=== PATIENT | female | born 1980 | race Caucasian/White ===

== ENCOUNTER 2018-06-17 23:47 | Emergency (ER) | payer MEDICAID ==
[~2018-06-17] VITALS: Ht 157.5 cm; Wt 118.2 kg
[~2018-06-17 23:47] MED LIST: ALBU18HF2 INH; BECL8.7A7 INH; CLON-527 PO; COU1T PO; COU3T PO; GABA-530 PO; LACT1CAP73 PO; SERT50TA PO; SUMA100T16 PO
[2018-06-18] MEDS ORDERED: morphine 4 MG/ML inj SYRINge IV ONE ×2 (00:20→02:20)
[2018-06-18] MEDS ORDERED: normal saline 1000ml 1,000 ML IV ONE (00:20)
[2018-06-18] MEDS ORDERED: LIDOcaine Viscous 15ml cup MM PRN (00:20)
[2018-06-18] MEDS ORDERED: mag hydrox/Alum hydrox/simeth 30ml oral suspension PO ONE (00:20)
[2018-06-18] MEDS ORDERED: ondansetron/PF 4mg/2ml inj IV ONE ×2 (00:20→02:20)
[2018-06-18 01:33] LABS: ALANINE AMINOTRANSFERASE 19 U/L (12-78); ALBUMIN 3.3 G/DL (3.4-5.0); ALBUMIN/GLOBULIN RATIO 0.8 (1.1-1.5); ALKALINE PHOSPHATASE 115 IU/L (46-116); ANION GAP 10 (8-16); ASPARTATE AMINO TRANSFERASE 25 U/L (10-37); BILIRUBIN,TOTAL 0.3 MG/DL (0.1-1.0); BLOOD UREA NITROGEN 15 MG/DL (7-18); BUN/CREATININE RATIO 18.8 (6.6-38.0); CALCIUM 8.7 MG/DL (8.5-10.1); CHLORIDE 103 MMOL/L (99-107); GLUCOSE 95 MG/DL (70-104); POTASSIUM 4.1 MMOL/L (3.5-5.1); SODIUM 138 MMOL/L (135-145); TOTAL CARBON DIOXIDE 24.9 MMOL/L (24-32); TOTAL PROTEIN 7.5 G/DL (6.4-8.2); eGFR 80 ML/MIN
[2018-06-18 01:37] LABS: INR 1.1 INR; PROTHROMBIN TIME 10.8 SECONDS (9.0-12.0)
[2018-06-18 01:40] LABS: COLOR,URINE YELLOW (Yellow); GLUCOSE, URINE NEGATIVE (Neg); KETONES,URINE NEGATIVE (Neg); LEUKOCYTE ESTERASE ,URINE SMALL (Neg); NITRITES, URINE NEGATIVE (Neg); OCCULT BLOOD,URINE MODERATE (Neg); PH,URINE 5.5 (4.8-8.0); PROTEIN,URINE NEGATIVE (Neg); UROBILINOGEN,URINE 0.2 E.U/dL (0.2-1.0)
[2018-06-18 01:41] LABS: URINE HCG NEGATIVE (NEG)
[2018-06-18 01:44] LABS: BASOPHILS # (AUTO) 0.1 X10'3 (0-0.2); BASOPHILS % (AUTO) 1.7 % (0-1); EOSINOPHILS # (AUTO) 0.3 X10'3 (0-0.9); EOSINOPHILS % (AUTO) 4.3 % (0-6); HEMATOCRIT 29.6 % (35.0-45.0); HEMOGLOBIN 9.8 g/dl (12.0-16.0); LYMPHOCYTES # (AUTO) 2.1 X10'3 (1.1-4.8); LYMPHOCYTES % (AUTO) 30.4 % (21-51); MEAN CORPUSCULAR HEMOGLOBIN 29.6 PG (27.0-31.0); MEAN CORPUSCULAR HGB CONC 33.3 % (33.0-36.5); MEAN PLATELET VOLUME 8.4 FL (7.4-10.4); MONOCYTES # (AUTO) 0.6 X10'3 (0-0.9); NEUTROPHILS # (AUTO) 3.8 X10'3 (1.8-7.7); NEUTROPHILS % (AUTO) 54.6 % (42-75); PLATELET COUNT 171 X10'3 (140-440); RED BLOOD COUNT 3.32 X10'6 (4.20-5.60); RED CELL DISTRIBUTION WIDTH 14.3 % (11.5-14.5); WHITE BLOOD COUNT 6.9 X10'3 (4.5-11.0)
[2018-06-18 01:45] LABS: CLARITY,URINE SLIGHTLY CLOUDY (Clear); UA COLLECTION TYPE CLN CATCH MIDSTREAM
[2018-06-18 01:47] LABS: BACTERIA,URINE FEW /HPF (Neg); SQUAMOUS EPITHELIAL CELL,UR FEW /LPF (FEW); WBC CLUMPS,URINE FEW /HPF (NEGATIVE)
[2018-06-18] MEDS ORDERED: ciprofloxacin 250mg tablet PO ONE (02:20)
[2018-06-18] MEDS ORDERED: ONDA4TAB9 PO (03:14)
[2018-06-18] MEDS ORDERED: CIPR-259 PO (03:14)
[2018-06-18 03:22] VITALS: BP 125/73
== END 2018-06-18 03:34 | disposition home or self-care (01) ==
LOC: ER 23:48
DX: N39.0 Urinary tract infection, site not specified (principal); R19.7 Diarrhea, unspecified; R11.10 Vomiting, unspecified; E66.01 Morbid (severe) obesity due to excess calories; J45.909 Unspecified asthma, uncomplicated; E11.9 Type 2 diabetes mellitus without complications; M19.90 Unspecified osteoarthritis, unspecified site; K21.9 Gastro-esophageal reflux disease without esophagitis; G89.29 Other chronic pain; Z86.73 Personal history of transient ischemic attack (TIA), and cerebral infarction without residual deficits; Z56.0 Unemployment, unspecified; Z90.49 Acquired absence of other specified parts of digestive tract; Z98.51 Tubal ligation status; Z86.718 Personal history of other venous thrombosis and embolism; Z86.711 Personal history of pulmonary embolism; Z87.442 Personal history of urinary calculi; Z88.3 Allergy status to other anti-infective agents; Z88.0 Allergy status to penicillin; Z88.2 Allergy status to sulfonamides; Z91.040 Latex allergy status; Z79.01 Long term (current) use of anticoagulants; Z88.6 Allergy status to analgesic agent
CPT/HCPCS: 36415; 80053; 81001; 81025; 85025; 85610; 87088; 96361; 96374; 96375; 96376; 99284; J2270; J2405; J7030

== ENCOUNTER 2018-07-23 22:23 | Emergency (ER) | payer MEDICAID ==
[~2018-07-23] VITALS: Ht 157.5 cm; Wt 127.0 kg
[2018-07-23] MEDS ORDERED: mag hydrox/Alum hydrox/simeth 30ml oral suspension PO ONE (22:40)
[2018-07-23] MEDS ORDERED: famotidine 20mg tablet PO ONE (22:40)
[2018-07-23] MEDS ORDERED: proCHLORperazine 10mg tablet PO ONE (22:40)
[2018-07-23] MEDS ORDERED: LIDOcaine Viscous 15ml cup MM PRN (22:40)
[2018-07-23] MEDS ORDERED: ketorolac trometh inj. 60 MG/2 ML VIAL IM ONE (23:50)
[2018-07-24 00:26] LABS: CLARITY,URINE SLIGHTLY CLOUDY (Clear); COLOR,URINE YELLOW (Yellow); GLUCOSE, URINE NEGATIVE (Neg); KETONES,URINE NEGATIVE (Neg); LEUKOCYTE ESTERASE ,URINE MODERATE (Neg); NITRITES, URINE NEGATIVE (Neg); OCCULT BLOOD,URINE LARGE (Neg); PH,URINE 5.5 (4.8-8.0); PROTEIN,URINE NEGATIVE (Neg); UROBILINOGEN,URINE 0.2 E.U/dL (0.2-1.0)
[2018-07-24 00:27] LABS: UA COLLECTION TYPE CLN CATCH MIDSTREAM
[2018-07-24 00:40] LABS: BACTERIA,URINE 35 /HPF (Neg); MUCUS STRANDS MODERATE /LPF (Neg); SQUAMOUS EPITHELIAL CELL,UR FEW /LPF (FEW)
[2018-07-24] MEDS ORDERED: ONDA4TAB6 PO (00:43)
[2018-07-24] MEDS ORDERED: NITR100C6 PO (00:43)
[2018-07-24] MEDS ORDERED: nitrofuran/nitrofuran macrocrysal 100 MG capsule PO ONE (00:45)
[2018-07-24 01:04] VITALS: BP 144/94
== END 2018-07-24 01:21 | disposition home or self-care (01) ==
LOC: ER 22:24
DX: N39.0 Urinary tract infection, site not specified (principal); R10.12 Left upper quadrant pain; R10.11 Right upper quadrant pain; R10.13 Epigastric pain; G43.909 Migraine, unspecified, not intractable, without status migrainosus; J45.909 Unspecified asthma, uncomplicated; E11.9 Type 2 diabetes mellitus without complications; G89.29 Other chronic pain; M19.90 Unspecified osteoarthritis, unspecified site; Z88.0 Allergy status to penicillin; Z88.1 Allergy status to other antibiotic agents; Z88.2 Allergy status to sulfonamides; Z88.8 Allergy status to other drugs, medicaments and biological substances; Z88.6 Allergy status to analgesic agent; Z91.018 Allergy to other foods; Z79.899 Other long term (current) drug therapy; Z86.73 Personal history of transient ischemic attack (TIA), and cerebral infarction without residual deficits; Z87.442 Personal history of urinary calculi; Z86.718 Personal history of other venous thrombosis and embolism; Z90.49 Acquired absence of other specified parts of digestive tract; Z98.51 Tubal ligation status; Z56.0 Unemployment, unspecified
CPT/HCPCS: 74018; 81001; 87088; 96372; 99284; J1885; 81003; Q0164

== ENCOUNTER 2018-09-04 23:11 | Emergency (ER) | payer MEDICAID ==
[~2018-09-04] VITALS: Ht 157.5 cm; Wt 123.0 kg
[~2018-09-04 23:11] MED LIST changes: +NITR100C6 PO; +ONDA4TAB6 PO
[2018-09-04 23:14] VITALS: BP 112/66
[2018-09-05] MEDS ORDERED: AZIT250T83 PO (00:35)
[2018-09-05] MEDS ORDERED: BUDE10.22 INH (00:35)
[2018-09-05] MEDS ORDERED: ALBU18HF2 INH (00:35)
[2018-09-05] MEDS ORDERED: ketorolac trometh inj. 60 MG/2 ML VIAL IM ONE (00:45)
== END 2018-09-05 00:59 | disposition home or self-care (01) ==
LOC: ER 23:11
DX: J44.1 Chronic obstructive pulmonary disease with (acute) exacerbation (principal); G43.909 Migraine, unspecified, not intractable, without status migrainosus; Z86.718 Personal history of other venous thrombosis and embolism; E11.9 Type 2 diabetes mellitus without complications; G89.29 Other chronic pain; Z86.73 Personal history of transient ischemic attack (TIA), and cerebral infarction without residual deficits; M19.90 Unspecified osteoarthritis, unspecified site; Z90.49 Acquired absence of other specified parts of digestive tract; Z98.51 Tubal ligation status; Z88.0 Allergy status to penicillin; Z88.2 Allergy status to sulfonamides; Z88.1 Allergy status to other antibiotic agents; Z91.040 Latex allergy status; Z88.6 Allergy status to analgesic agent; Z91.018 Allergy to other foods; Z88.8 Allergy status to other drugs, medicaments and biological substances; Z79.01 Long term (current) use of anticoagulants; Z79.899 Other long term (current) drug therapy; Z56.0 Unemployment, unspecified
CPT/HCPCS: 96372; 99283; J1885

== ENCOUNTER 2018-09-08 01:14 | Emergency (ER) | payer MEDICAID ==
[~2018-09-08] VITALS: Ht 157.5 cm; Wt 110.0 kg
[~2018-09-08 01:14] MED LIST changes: +AZIT250T83 PO; +BUDE10.22 INH
[2018-09-08] MEDS ORDERED: normal saline 1000ML IV soln IVB ONE (01:30)
[2018-09-08] MEDS ORDERED: ketorolac trometh. 30mg/ml inj. IV ONE (01:30)
[2018-09-08] MEDS ORDERED: ondansetron/PF 4mg/2ml inj IV ONE (01:30)
[2018-09-08] MEDS ORDERED: LORazepam 2 mg/ml vial IV ONE (01:30)
[2018-09-08] MEDS ORDERED: diphenhydrAMINE 50 mg/ml inj IM STA (02:20)
--- NOTE | 2018-09-08 02:20 | NUR ---
pt developing rash by injection site and to elbow red and itchy MD made aware ordered benadryl
[2018-09-08 02:21] LABS: BASOPHILS # (AUTO) 0.1 X10'3 (0-0.2); BASOPHILS % (AUTO) 1.3 % (0-1); EOSINOPHILS # (AUTO) 0.3 X10'3 (0-0.9); EOSINOPHILS % (AUTO) 3.9 % (0-6); HEMATOCRIT 34.6 % (35.0-45.0); HEMOGLOBIN 11.5 g/dl (12.0-16.0); LYMPHOCYTES # (AUTO) 2.1 X10'3 (1.1-4.8); LYMPHOCYTES % (AUTO) 26.7 % (21-51); MEAN CORPUSCULAR HEMOGLOBIN 28.6 PG (27.0-31.0); MEAN CORPUSCULAR HGB CONC 33.2 % (33.0-36.5); MEAN CORPUSCULAR VOLUME 86.1 FL (78-98); MEAN PLATELET VOLUME 8.3 FL (7.4-10.4); MONOCYTES # (AUTO) 0.5 X10'3 (0-0.9); MONOCYTES % (AUTO) 6.2 % (2-12); NEUTROPHILS % (AUTO) 61.9 % (42-75); PLATELET COUNT 229 X10'3 (140-440); RED BLOOD COUNT 4.02 X10'6 (4.20-5.60); RED CELL DISTRIBUTION WIDTH 15.2 % (11.5-14.5)
[2018-09-08] MEDS ORDERED: diphenhydrAMINE 50 mg/ml inj ONE (02:22)
[2018-09-08] MEDS ORDERED: diphenhydrAMINE 50 mg/ml inj IV STA (02:24)
[2018-09-08 02:29] LABS: ALANINE AMINOTRANSFERASE 33 U/L (12-78); ALBUMIN 3.2 G/DL (3.4-5.0); ALBUMIN/GLOBULIN RATIO 0.8 (1.1-1.5); ALKALINE PHOSPHATASE 128 IU/L (46-116); ANION GAP 10 (8-16); ASPARTATE AMINO TRANSFERASE 30 U/L (10-37); BILIRUBIN,TOTAL 0.2 MG/DL (0.1-1.0); BLOOD UREA NITROGEN 24 MG/DL (7-18); BUN/CREATININE RATIO 35.8 (6.6-38.0); CALCIUM 8.6 MG/DL (8.5-10.1); CHLORIDE 106 MMOL/L (99-107); CREATININE 0.67 MG/DL (0.40-0.90); GLUCOSE 107 MG/DL (70-104); POTASSIUM 4.7 MMOL/L (3.5-5.1); SODIUM 141 MMOL/L (135-145); TOTAL CARBON DIOXIDE 25.1 MMOL/L (24-32); TOTAL PROTEIN 7.4 G/DL (6.4-8.2); eGFR > 90 ML/MIN
--- NOTE | 2018-09-08 02:31 | NUR ---
took off the tagaderm, coban, in case that was causing any reaction with her skin.
--- NOTE | 2018-09-08 02:32 | NUR ---
pt asking for more pain medicine
[2018-09-08] MEDS ORDERED: morphine 4 MG/ML inj SYRINge IV ONE (02:40)
[2018-09-08 03:00] LABS: CLARITY,URINE CLOUDY (Clear); COLOR,URINE YELLOW (Yellow); GLUCOSE, URINE NEGATIVE (Neg); KETONES,URINE NEGATIVE (Neg); LEUKOCYTE ESTERASE ,URINE NEGATIVE (Neg); NITRITES, URINE NEGATIVE (Neg); OCCULT BLOOD,URINE LARGE (Neg); PROTEIN,URINE NEGATIVE (Neg); UROBILINOGEN,URINE 0.2 E.U/dL (0.2-1.0)
[2018-09-08 03:03] LABS: UA COLLECTION TYPE CLN CATCH MIDSTREAM
[2018-09-08 03:04] LABS: URINE HCG NEGATIVE (NEG)
[2018-09-08 03:25] LABS: SQUAMOUS EPITHELIAL CELL,UR MANY /LPF (FEW)
[2018-09-08 03:26] LABS: BACTERIA,URINE 4+ /HPF (Neg)
[2018-09-08] MEDS ORDERED: ONDA4TAB12 PO (04:52)
[2018-09-08 05:29] VITALS: BP 120/85
== END 2018-09-08 05:32 | disposition home or self-care (01) ==
LOC: ER 01:14
DX: R10.32 Left lower quadrant pain (principal); G43.909 Migraine, unspecified, not intractable, without status migrainosus; J45.909 Unspecified asthma, uncomplicated; Z86.718 Personal history of other venous thrombosis and embolism; E11.9 Type 2 diabetes mellitus without complications; M19.90 Unspecified osteoarthritis, unspecified site; G89.29 Other chronic pain; Z86.73 Personal history of transient ischemic attack (TIA), and cerebral infarction without residual deficits; F17.210 Nicotine dependence, cigarettes, uncomplicated; Z90.49 Acquired absence of other specified parts of digestive tract; Z98.51 Tubal ligation status; Z88.0 Allergy status to penicillin; Z88.1 Allergy status to other antibiotic agents; Z88.2 Allergy status to sulfonamides; Z91.018 Allergy to other foods; Z91.040 Latex allergy status; Z88.8 Allergy status to other drugs, medicaments and biological substances; Z79.01 Long term (current) use of anticoagulants; Z79.899 Other long term (current) drug therapy; Z56.0 Unemployment, unspecified
CPT/HCPCS: 36415; 74176; 80053; 81001; 81025; 85025; 96374; 96375; 99284; J1200; J1885; J2060; J2270; J2405; J7030

== ENCOUNTER 2018-09-13 15:16 | Emergency (ER) | payer MEDICAID ==
[~2018-09-13] VITALS: Ht 157.5 cm; Wt 118.2 kg
[~2018-09-13 15:16] MED LIST changes: -AZIT250T83 PO; +ONDA4TAB12 PO
[2018-09-13] MEDS ORDERED: HYDROcodone/acetaminophen 5mg/325mg tablet PO ONE (15:45)
[2018-09-13 16:19] VITALS: BP 107/73
== END 2018-09-13 16:21 | disposition home or self-care (01) ==
LOC: ER 15:17
DX: S80.212A Abrasion, left knee, initial encounter (principal); G43.909 Migraine, unspecified, not intractable, without status migrainosus; J45.909 Unspecified asthma, uncomplicated; E11.9 Type 2 diabetes mellitus without complications; Z86.718 Personal history of other venous thrombosis and embolism; M19.90 Unspecified osteoarthritis, unspecified site; G89.29 Other chronic pain; Z86.73 Personal history of transient ischemic attack (TIA), and cerebral infarction without residual deficits; Z88.0 Allergy status to penicillin; Z88.1 Allergy status to other antibiotic agents; Z91.040 Latex allergy status; Z91.018 Allergy to other foods; Z88.8 Allergy status to other drugs, medicaments and biological substances; Z79.01 Long term (current) use of anticoagulants; Z79.899 Other long term (current) drug therapy; Z90.49 Acquired absence of other specified parts of digestive tract; Z98.51 Tubal ligation status; Z56.0 Unemployment, unspecified; X58.XXXA Exposure to other specified factors, initial encounter; Y93.89 Activity, other specified; Y92.89 Other specified places as the place of occurrence of the external cause; Y99.8 Other external cause status
CPT/HCPCS: 73560; 99284

== ENCOUNTER 2018-09-18 18:03 | Emergency (ER) | payer MEDICAID ==
[~2018-09-18] VITALS: Ht 157.5 cm; Wt 124.0 kg
[2018-09-18 18:25] VITALS: BP 134/89
[2018-09-18] MEDS ORDERED: proCHLORperazine 10 MG/2 ml inj IM ONE (20:40)
[2018-09-18] MEDS ORDERED: ketorolac trometh inj. 60 MG/2 ML VIAL IM ONE (20:40)
[2018-09-18] MEDS ORDERED: PHE12.5T PO (21:18)
== END 2018-09-18 21:25 | disposition home or self-care (01) ==
LOC: ER 18:03
DX: G43.909 Migraine, unspecified, not intractable, without status migrainosus (principal); J45.909 Unspecified asthma, uncomplicated; E11.9 Type 2 diabetes mellitus without complications; M19.90 Unspecified osteoarthritis, unspecified site; G89.29 Other chronic pain; M54.9 Dorsalgia, unspecified; Z98.51 Tubal ligation status; Z86.73 Personal history of transient ischemic attack (TIA), and cerebral infarction without residual deficits; Z90.49 Acquired absence of other specified parts of digestive tract; Z56.0 Unemployment, unspecified; Z91.040 Latex allergy status; Z88.0 Allergy status to penicillin; Z88.2 Allergy status to sulfonamides; Z88.8 Allergy status to other drugs, medicaments and biological substances; Z91.018 Allergy to other foods
CPT/HCPCS: 96372; 99283; J0780; J1885

== ENCOUNTER → 2018-09-21 | Emergency (ER) | payer MEDICAID ==
[~2018-09-21] VITALS: Ht 157.5 cm; Wt 109.0 kg
[~2018-09-21] MED LIST changes: +PHE12.5T PO; +ibuprofen tablet 400 MG TABLET PO ONE
[2018-09-21 00:12] VITALS: BP 134/86
--- NOTE | 2018-09-21 00:22 | NUR ---
Patient's original complaint involved her foot. When x-ray when in to take the image, she states that it is actually her ankle. Order changed from foot to ankle.
== END | disposition home or self-care (01) ==
LOC: ER 00:09
DX: S93.401A Sprain of unspecified ligament of right ankle, initial encounter (principal); G43.909 Migraine, unspecified, not intractable, without status migrainosus; E11.9 Type 2 diabetes mellitus without complications; M19.90 Unspecified osteoarthritis, unspecified site; G89.29 Other chronic pain; Z86.718 Personal history of other venous thrombosis and embolism; Z86.73 Personal history of transient ischemic attack (TIA), and cerebral infarction without residual deficits; Z98.51 Tubal ligation status; Z90.49 Acquired absence of other specified parts of digestive tract; Z56.0 Unemployment, unspecified; Z88.1 Allergy status to other antibiotic agents; Z91.040 Latex allergy status; Z88.0 Allergy status to penicillin; Z88.2 Allergy status to sulfonamides; Z88.8 Allergy status to other drugs, medicaments and biological substances; Z91.018 Allergy to other foods; W01.0XXA Fall on same level from slipping, tripping and stumbling without subsequent striking against object, initial encounter; Y93.89 Activity, other specified; Y92.89 Other specified places as the place of occurrence of the external cause; Y99.8 Other external cause status
CPT/HCPCS: 73610; 99283

== ENCOUNTER 2018-10-01 23:10 | Emergency (ER) | payer MEDICAID ==
[~2018-10-01] VITALS: Ht 157.5 cm; Wt 129.6 kg
[~2018-10-01 23:10] MED LIST changes: -ibuprofen tablet 400 MG TABLET PO ONE
[2018-10-01 23:13] VITALS: BP 132/48
--- NOTE | 2018-10-02 00:03 | NUR ---
PT RESTING COMFORTABLY IN BED, UNTIL SHE SAW STAFF WALKING BY AT WHICH POINT SHE STARTED MOANING FOR PAIN MEDS
[2018-10-02] MEDS ORDERED: cyclobenzaprine 10mg tablet PO ONE (00:45)
[2018-10-02] MEDS ORDERED: HYDROcodone/acetaminophen 10/325mg tab PO ONE (00:45)
[2018-10-02] MEDS ORDERED: ketorolac trometh inj. 60 MG/2 ML VIAL IM ONE (00:45)
[2018-10-02] MEDS ORDERED: CYCL-1 PO (01:37)
== END 2018-10-02 01:53 | disposition home or self-care (01) ==
LOC: ER 23:11
DX: R56.9 Unspecified convulsions (principal); M54.5 Low back pain; R32 Unspecified urinary incontinence; R20.0 Anesthesia of skin; G89.29 Other chronic pain; E11.9 Type 2 diabetes mellitus without complications; M19.90 Unspecified osteoarthritis, unspecified site; G43.909 Migraine, unspecified, not intractable, without status migrainosus; Z88.0 Allergy status to penicillin; Z88.1 Allergy status to other antibiotic agents; Z88.8 Allergy status to other drugs, medicaments and biological substances; Z88.2 Allergy status to sulfonamides; Z91.018 Allergy to other foods; Z91.040 Latex allergy status; Z79.899 Other long term (current) drug therapy; Z86.718 Personal history of other venous thrombosis and embolism; Z86.73 Personal history of transient ischemic attack (TIA), and cerebral infarction without residual deficits; Z87.442 Personal history of urinary calculi; Z56.0 Unemployment, unspecified; Z90.49 Acquired absence of other specified parts of digestive tract; Z98.51 Tubal ligation status
CPT/HCPCS: 72110; 96372; 99283; J1885

== ENCOUNTER 2018-10-21 23:04 | Emergency (ER) | payer MEDICAID ==
[~2018-10-21] VITALS: Ht 157.5 cm; Wt 126.6 kg
[~2018-10-21 23:04] MED LIST changes: +CYCL-1 PO
[2018-10-22] MEDS ORDERED: cyclobenzaprine 10mg tablet PO ONE (01:55)
[2018-10-22] MEDS ORDERED: ibuprofen 200mg tablet PO ONE (01:55)
[2018-10-22 01:59] VITALS: BP 110/70
== END 2018-10-22 | disposition home or self-care (01) ==
LOC: ER 10-22 04:44
DX: R07.89 Other chest pain (principal); G43.909 Migraine, unspecified, not intractable, without status migrainosus; J45.909 Unspecified asthma, uncomplicated; E11.9 Type 2 diabetes mellitus without complications; M19.90 Unspecified osteoarthritis, unspecified site; G89.29 Other chronic pain; Z86.718 Personal history of other venous thrombosis and embolism; Z86.73 Personal history of transient ischemic attack (TIA), and cerebral infarction without residual deficits; Z90.49 Acquired absence of other specified parts of digestive tract; Z90.89 Acquired absence of other organs; Z88.0 Allergy status to penicillin; Z88.1 Allergy status to other antibiotic agents; Z91.018 Allergy to other foods; Z91.040 Latex allergy status; Z88.8 Allergy status to other drugs, medicaments and biological substances; Z79.01 Long term (current) use of anticoagulants; Z79.899 Other long term (current) drug therapy
CPT/HCPCS: 93005; 99283

== ENCOUNTER 2018-10-27 22:37 | Emergency (ER) | payer MEDICAID ==
[~2018-10-27] VITALS: Ht 157.5 cm; Wt 130.0 kg
[2018-10-27 23:01] VITALS: BP 131/82
[2018-10-27] MEDS ORDERED: acetaminophen w/codeine (30MG) #3 tablet PO ONE (23:10)
== END 2018-10-27 23:36 | disposition home or self-care (01) ==
LOC: ER 22:37
DX: S70.02XA Contusion of left hip, initial encounter (principal); S09.90XA Unspecified injury of head, initial encounter; G43.909 Migraine, unspecified, not intractable, without status migrainosus; J45.909 Unspecified asthma, uncomplicated; Z86.718 Personal history of other venous thrombosis and embolism; E11.9 Type 2 diabetes mellitus without complications; M19.90 Unspecified osteoarthritis, unspecified site; G89.29 Other chronic pain; Z86.73 Personal history of transient ischemic attack (TIA), and cerebral infarction without residual deficits; Z90.49 Acquired absence of other specified parts of digestive tract; Z98.51 Tubal ligation status; Z88.1 Allergy status to other antibiotic agents; Z91.040 Latex allergy status; Z88.0 Allergy status to penicillin; Z88.2 Allergy status to sulfonamides; Z88.8 Allergy status to other drugs, medicaments and biological substances; Z91.018 Allergy to other foods; Z79.01 Long term (current) use of anticoagulants; Z79.899 Other long term (current) drug therapy; Z56.0 Unemployment, unspecified; W18.2XXA Fall in (into) shower or empty bathtub, initial encounter; Y93.E1 Activity, personal bathing and showering; Y92.89 Other specified places as the place of occurrence of the external cause; Y99.8 Other external cause status
CPT/HCPCS: 70450; 73502; 99284

== ENCOUNTER 2018-11-01 23:22 | Emergency (ER) | payer MEDICAID ==
[~2018-11-01] VITALS: Ht 157.5 cm; Wt 120.0 kg
[2018-11-02] MEDS ORDERED: normal saline 1000ML IV soln IVB ONE (00:10)
[2018-11-02] MEDS ORDERED: ondansetron/PF 4mg/2ml inj IV ONE (00:10)
[2018-11-02] MEDS ORDERED: ketorolac trometh. 30mg/ml inj. IV ONE (00:10)
[2018-11-02 00:34] LABS: BASOPHILS % (AUTO) 0.3 % (0-1); EOSINOPHILS # (AUTO) 0.3 X10'3 (0-0.9); EOSINOPHILS % (AUTO) 3.1 % (0-6); HEMATOCRIT 37.6 % (35.0-45.0); HEMOGLOBIN 12.1 g/dl (12.0-16.0); LYMPHOCYTES # (AUTO) 2.9 X10'3 (1.1-4.8); LYMPHOCYTES % (AUTO) 35.3 % (21-51); MEAN CORPUSCULAR HGB CONC 32.2 g/dL (33.0-36.5); MEAN CORPUSCULAR VOLUME 87.1 FL (78-98); MEAN PLATELET VOLUME 8.1 FL (7.4-10.4); MONOCYTES # (AUTO) 0.6 X10'3 (0-0.9); MONOCYTES % (AUTO) 7.5 % (2-12); NEUTROPHILS # (AUTO) 4.5 X10'3 (1.8-7.7); NEUTROPHILS % (AUTO) 53.8 % (42-75); PLATELET COUNT 248 X10'3 (140-440); RED BLOOD COUNT 4.32 X10'6 (4.20-5.60); RED CELL DISTRIBUTION WIDTH 15.4 % (11.5-14.5); WHITE BLOOD COUNT 8.3 X10'3 (4.5-11.0)
[2018-11-02 00:37] LABS: URINE HCG NEGATIVE (NEG)
[2018-11-02 00:41] LABS: CLARITY,URINE CLEAR (Clear); COLOR,URINE YELLOW (Yellow); GLUCOSE, URINE NEGATIVE (Neg); KETONES,URINE TRACE mg/dl (Neg); LEUKOCYTE ESTERASE ,URINE TRACE (Neg); NITRITES, URINE NEGATIVE (Neg); OCCULT BLOOD,URINE SMALL (Neg); PROTEIN,URINE NEGATIVE (Neg); UROBILINOGEN,URINE 0.2 E.U/dL (0.2-1.0)
[2018-11-02 00:44] LABS: UA COLLECTION TYPE NON-SPECIFIED
[2018-11-02 00:46] LABS: ALANINE AMINOTRANSFERASE 22 U/L (12-78); ALBUMIN 3.6 G/DL (3.4-5.0); ALBUMIN/GLOBULIN RATIO 0.9 (1.1-1.5); ALKALINE PHOSPHATASE 113 IU/L (46-116); ANION GAP 10 (8-16); ASPARTATE AMINO TRANSFERASE 21 U/L (10-37); BILIRUBIN,TOTAL 0.2 MG/DL (0.1-1.0); BLOOD UREA NITROGEN 21 MG/DL (7-18); BUN/CREATININE RATIO 28.8 (6.6-38.0); CALCIUM 8.8 MG/DL (8.5-10.1); CHLORIDE 106 MMOL/L (99-107); CREATININE 0.73 MG/DL (0.40-0.90); GLUCOSE 86 MG/DL (70-104); POTASSIUM 3.9 MMOL/L (3.5-5.1); SODIUM 141 MMOL/L (135-145); TOTAL CARBON DIOXIDE 25.5 MMOL/L (24-32); TOTAL PROTEIN 7.4 G/DL (6.4-8.2); eGFR 88 ML/MIN
[2018-11-02 00:48] LABS: SQUAMOUS EPITHELIAL CELL,UR MODERATE /LPF (FEW)
[2018-11-02 00:49] LABS: BACTERIA,URINE 1+ /HPF (Neg); MUCUS STRANDS FEW /LPF (Neg)
[2018-11-02] MEDS ORDERED: HYDROmorphone inj. 0.5 MG/0.5 ML DISP.SYRIN IV ONE (01:30)
[2018-11-02] MEDS ORDERED: PHEN-716 PO (02:26)
[2018-11-02] MEDS ORDERED: ONDA4TAB6 PO (02:26)
[2018-11-02] MEDS ORDERED: KETO10TA2 PO (02:26)
[2018-11-02] MEDS ORDERED: LEVO500T2 PO (02:26)
[2018-11-02 02:44] VITALS: BP 115/75
== END 2018-11-02 02:45 | disposition home or self-care (01) ==
LOC: ER 23:23
DX: N39.0 Urinary tract infection, site not specified (principal); N85.8 Other specified noninflammatory disorders of uterus; R10.32 Left lower quadrant pain; G43.909 Migraine, unspecified, not intractable, without status migrainosus; J45.909 Unspecified asthma, uncomplicated; E11.9 Type 2 diabetes mellitus without complications; M19.90 Unspecified osteoarthritis, unspecified site; G89.29 Other chronic pain; Z86.73 Personal history of transient ischemic attack (TIA), and cerebral infarction without residual deficits; Z86.718 Personal history of other venous thrombosis and embolism; Z86.711 Personal history of pulmonary embolism; Z56.0 Unemployment, unspecified; Z90.49 Acquired absence of other specified parts of digestive tract; Z90.710 Acquired absence of both cervix and uterus; Z98.51 Tubal ligation status; Z79.01 Long term (current) use of anticoagulants; Z79.899 Other long term (current) drug therapy; Z88.8 Allergy status to other drugs, medicaments and biological substances; Z88.1 Allergy status to other antibiotic agents; Z88.2 Allergy status to sulfonamides; Z88.3 Allergy status to other anti-infective agents; Z91.040 Latex allergy status; Z87.442 Personal history of urinary calculi
CPT/HCPCS: 36415; 74176; 80053; 81001; 81025; 85025; 87088; 96374; 96375; 99284; J1170; J1885; J2405; J7030

== ENCOUNTER 2018-12-06 00:33 | Emergency (ER) | payer MEDICAID ==
[~2018-12-06] VITALS: Ht 157.5 cm; Wt 127.0 kg
[~2018-12-06 00:33] MED LIST changes: +KETO10TA2 PO; +PHEN-716 PO
[2018-12-06 00:39] VITALS: BP 108/58
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
== END 2018-12-06 02:56 | disposition left against medical advice (07) ==
LOC: ER 00:35
DX: R56.9 Unspecified convulsions (principal); M54.5 Low back pain; Z53.21 Procedure and treatment not carried out due to patient leaving prior to being seen by health care provider; Z88.0 Allergy status to penicillin; Z88.2 Allergy status to sulfonamides; Z88.1 Allergy status to other antibiotic agents; Z88.8 Allergy status to other drugs, medicaments and biological substances; Z91.040 Latex allergy status; Z91.018 Allergy to other foods; Z79.899 Other long term (current) drug therapy

== ENCOUNTER 2019-01-07 01:29 | Emergency (ER) | payer MEDICAID ==
[~2019-01-07] VITALS: Ht 157.5 cm; Wt 127.3 kg
[2019-01-07 01:35] VITALS: BP 164/95
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
[2019-01-07] MEDS ORDERED: acetaminophen 325mg tablet PO ONE (02:00)
[2019-01-07] MEDS ORDERED: ibuprofen 200mg tablet PO ONE (04:25)
== END 2019-01-07 05:15 | disposition home or self-care (01) ==
LOC: ER 01:30 → EEVIPCON 01:30 → ER 05:15
DX: T74.21XA Adult sexual abuse, confirmed, initial encounter (principal); N93.9 Abnormal uterine and vaginal bleeding, unspecified; R10.84 Generalized abdominal pain; G43.909 Migraine, unspecified, not intractable, without status migrainosus; J45.909 Unspecified asthma, uncomplicated; E11.9 Type 2 diabetes mellitus without complications; G89.29 Other chronic pain; Z86.718 Personal history of other venous thrombosis and embolism; Z90.49 Acquired absence of other specified parts of digestive tract; Z90.710 Acquired absence of both cervix and uterus; Z98.51 Tubal ligation status; Z86.711 Personal history of pulmonary embolism; Z87.442 Personal history of urinary calculi; Z88.0 Allergy status to penicillin; Z88.2 Allergy status to sulfonamides; Z88.1 Allergy status to other antibiotic agents; Z91.040 Latex allergy status; Z79.01 Long term (current) use of anticoagulants; Z79.899 Other long term (current) drug therapy; Z86.73 Personal history of transient ischemic attack (TIA), and cerebral infarction without residual deficits; Z56.0 Unemployment, unspecified
CPT/HCPCS: 99283

== ENCOUNTER 2019-01-18 04:45 | Emergency (ER) | payer MEDICAID ==
[~2019-01-18] VITALS: Ht 157.5 cm; Wt 120.9 kg
[~2019-01-18 04:45] MED LIST changes: -PHE12.5T PO; +PROM12.512 PO
[2019-01-18 04:50] VITALS: BP 138/59
[2019-01-18 05:13] LABS: URINE HCG NEGATIVE (NEG)
[2019-01-18 05:14] LABS: CLARITY,URINE CLOUDY (Clear); COLOR,URINE YELLOW (Yellow); GLUCOSE, URINE NEGATIVE (Neg); KETONES,URINE NEGATIVE (Neg); LEUKOCYTE ESTERASE ,URINE NEGATIVE (Neg); NITRITES, URINE NEGATIVE (Neg); OCCULT BLOOD,URINE SMALL (Neg); PH,URINE 5.5 (4.8-8.0); PROTEIN,URINE TRACE mg/dl (Neg); UROBILINOGEN,URINE 0.2 E.U/dL (0.2-1.0)
[2019-01-18 05:26] LABS: UA COLLECTION TYPE CLN CATCH MIDSTREAM
[2019-01-18] MEDS ORDERED: normal saline 1000ML IV soln IVB ONE (05:30)
[2019-01-18] MEDS ORDERED: ketorolac tromethamine 15mg/ml inj. IV ONE (05:30)
[2019-01-18] MEDS ORDERED: ondansetron/PF 4mg/2ml inj IV ONE (05:30)
[2019-01-18 05:44] LABS: BACTERIA,URINE 2+ /HPF (Neg); MUCUS STRANDS MODERATE /LPF (Neg); RBC,URINE 0-2 /HPF (0-2); SQUAMOUS EPITHELIAL CELL,UR MANY /LPF (FEW); WBC,URINE 0-4 /HPF (0-4)
[2019-01-18 06:43] LABS: ALANINE AMINOTRANSFERASE 23 U/L (12-78); ALBUMIN 3.4 G/DL (3.4-5.0); ALBUMIN/GLOBULIN RATIO 0.9 (1.1-1.5); ALKALINE PHOSPHATASE 94 IU/L (46-116); ANION GAP 11 (8-16); ASPARTATE AMINO TRANSFERASE 22 U/L (10-37); BILIRUBIN,TOTAL 0.3 MG/DL (0.1-1.0); BLOOD UREA NITROGEN 17 MG/DL (7-18); CALCIUM 8.4 MG/DL (8.5-10.1); CHLORIDE 107 MMOL/L (99-107); CREATININE 0.68 MG/DL (0.40-0.90); GLUCOSE 93 MG/DL (70-104); LIPASE 88 U/L (73-393); POTASSIUM 4.2 MMOL/L (3.5-5.1); SODIUM 143 MMOL/L (135-145); TOTAL CARBON DIOXIDE 25.3 MMOL/L (24-32); TOTAL PROTEIN 7.2 G/DL (6.4-8.2); eGFR > 90 ML/MIN
[2019-01-18] MEDS ORDERED: NITR100C6 PO (06:55)
== END 2019-01-18 07:03 | disposition home or self-care (01) ==
LOC: ER 04:45
DX: R31.9 Hematuria, unspecified (principal); R10.32 Left lower quadrant pain; G43.909 Migraine, unspecified, not intractable, without status migrainosus; E11.9 Type 2 diabetes mellitus without complications; M19.90 Unspecified osteoarthritis, unspecified site; G89.29 Other chronic pain; Z86.73 Personal history of transient ischemic attack (TIA), and cerebral infarction without residual deficits; Z86.711 Personal history of pulmonary embolism; Z86.718 Personal history of other venous thrombosis and embolism; Z90.49 Acquired absence of other specified parts of digestive tract; Z90.710 Acquired absence of both cervix and uterus; Z98.51 Tubal ligation status; Z56.0 Unemployment, unspecified; Z88.1 Allergy status to other antibiotic agents; Z88.0 Allergy status to penicillin; Z88.2 Allergy status to sulfonamides; Z88.3 Allergy status to other anti-infective agents; Z79.899 Other long term (current) drug therapy; Z87.442 Personal history of urinary calculi
CPT/HCPCS: 36415; 74176; 80053; 81001; 81025; 83690; 96374; 96375; 99284; J1885; J2405; J7030

== ENCOUNTER 2019-02-27 23:09 | Emergency (ER) | payer MEDICAID ==
[~2019-02-27] VITALS: Ht 157.5 cm; Wt 125.0 kg
[~2019-02-27 23:09] MED LIST changes: +RIVA10TA PO
[2019-02-27 23:51] LABS: BASOPHILS % (AUTO) 0.2 % (0-1); EOSINOPHILS # (AUTO) 0.3 X10'3 (0-0.9); EOSINOPHILS % (AUTO) 2.6 % (0-6); HEMATOCRIT 36.8 % (35.0-45.0); HEMOGLOBIN 12.3 g/dl (12.0-16.0); LYMPHOCYTES # (AUTO) 3.1 X10'3 (1.1-4.8); LYMPHOCYTES % (AUTO) 32.9 % (21-51); MEAN CORPUSCULAR HEMOGLOBIN 29.8 PG (27.0-31.0); MEAN CORPUSCULAR HGB CONC 33.4 g/dL (33.0-36.5); MEAN CORPUSCULAR VOLUME 89.1 FL (78-98); MEAN PLATELET VOLUME 8.2 FL (7.4-10.4); MONOCYTES # (AUTO) 0.8 X10'3 (0-0.9); MONOCYTES % (AUTO) 8.5 % (2-12); NEUTROPHILS # (AUTO) 5.3 X10'3 (1.8-7.7); NEUTROPHILS % (AUTO) 55.8 % (42-75); PLATELET COUNT 213 X10'3 (140-440); RED BLOOD COUNT 4.13 X10'6 (4.20-5.60); RED CELL DISTRIBUTION WIDTH 15.5 % (11.5-14.5); WHITE BLOOD COUNT 9.6 X10'3 (4.5-11.0)
[2019-02-27 23:58] LABS: ALANINE AMINOTRANSFERASE 23 U/L (12-78); ALBUMIN 3.5 G/DL (3.4-5.0); ALBUMIN/GLOBULIN RATIO 0.9 (1.1-1.5); ALKALINE PHOSPHATASE 110 IU/L (46-116); ANION GAP 9 (8-16); ASPARTATE AMINO TRANSFERASE 17 U/L (10-37); BILIRUBIN,TOTAL 0.2 MG/DL (0.1-1.0); BLOOD UREA NITROGEN 17 MG/DL (7-18); BUN/CREATININE RATIO 22.1 (6.6-38.0); CALCIUM 8.9 MG/DL (8.5-10.1); CHLORIDE 105 MMOL/L (99-107); CREATININE 0.77 MG/DL (0.40-0.90); GLUCOSE 86 MG/DL (70-104); POTASSIUM 3.4 MMOL/L (3.5-5.1); SODIUM 139 MMOL/L (135-145); TOTAL CARBON DIOXIDE 25.2 MMOL/L (24-32); TOTAL PROTEIN 7.3 G/DL (6.4-8.2); eGFR 83 ML/MIN
[2019-02-28] LABS: D-DIMER 1.03 MG/L FEU (0-0.50)
[2019-02-28] MEDS ORDERED: iohexol 350MG/ML 100ml bottle IV ONE (00:31)
[2019-02-28 02:55] VITALS: BP 124/77
== END 2019-02-28 03:04 | disposition home or self-care (01) ==
LOC: ER 23:10
DX: R07.89 Other chest pain (principal); M79.662 Pain in left lower leg; G43.909 Migraine, unspecified, not intractable, without status migrainosus; J45.909 Unspecified asthma, uncomplicated; E11.9 Type 2 diabetes mellitus without complications; M19.90 Unspecified osteoarthritis, unspecified site; G89.29 Other chronic pain; Z56.0 Unemployment, unspecified; Z90.49 Acquired absence of other specified parts of digestive tract; Z90.710 Acquired absence of both cervix and uterus; Z98.51 Tubal ligation status; Z86.73 Personal history of transient ischemic attack (TIA), and cerebral infarction without residual deficits; Z86.711 Personal history of pulmonary embolism; Z86.718 Personal history of other venous thrombosis and embolism; Z88.3 Allergy status to other anti-infective agents; Z88.1 Allergy status to other antibiotic agents; Z88.0 Allergy status to penicillin; Z88.2 Allergy status to sulfonamides; Z91.040 Latex allergy status; Z79.899 Other long term (current) drug therapy
CPT/HCPCS: 36415; 71045; 71275; 80053; 83880; 84484; 85025; 85379; 85610; 93005; 93971; 99284; Q9967

== ENCOUNTER 2019-03-07 13:38 | Emergency (ER) | payer MEDICAID ==
[~2019-03-07] VITALS: Ht 157.5 cm; Wt 126.0 kg
[2019-03-07 13:39] VITALS: BP 116/72
== END 2019-03-07 14:48 | disposition home or self-care (01) ==
LOC: ER 13:38
DX: J30.9 Allergic rhinitis, unspecified (principal); H66.93 Otitis media, unspecified, bilateral; F17.210 Nicotine dependence, cigarettes, uncomplicated; G43.909 Migraine, unspecified, not intractable, without status migrainosus; J45.909 Unspecified asthma, uncomplicated; E11.9 Type 2 diabetes mellitus without complications; M19.90 Unspecified osteoarthritis, unspecified site; G89.29 Other chronic pain; F41.9 Anxiety disorder, unspecified; F32.9 Major depressive disorder, single episode, unspecified; F20.9 Schizophrenia, unspecified; Z86.73 Personal history of transient ischemic attack (TIA), and cerebral infarction without residual deficits; Z86.711 Personal history of pulmonary embolism; Z86.718 Personal history of other venous thrombosis and embolism; Z87.442 Personal history of urinary calculi; Z90.49 Acquired absence of other specified parts of digestive tract; Z90.710 Acquired absence of both cervix and uterus; Z98.51 Tubal ligation status; Z56.0 Unemployment, unspecified; Z88.1 Allergy status to other antibiotic agents; Z88.0 Allergy status to penicillin; Z88.2 Allergy status to sulfonamides; Z91.040 Latex allergy status; Z91.018 Allergy to other foods; Z88.8 Allergy status to other drugs, medicaments and biological substances; Z79.899 Other long term (current) drug therapy
CPT/HCPCS: 99281

== ENCOUNTER 2019-03-25 23:53 | Emergency (ER) | payer MEDICAID ==
[~2019-03-25] VITALS: Ht 157.5 cm; Wt 124.3 kg
[2019-03-25 23:59] VITALS: BP 122/83
[2019-03-26] MEDS ORDERED: dexamethasone sod phosphate 10mg/ml inj IV STA (00:27)
[2019-03-26] MEDS ORDERED: ketorolac tromethamine 15mg/ml inj. IV ONE (00:30)
[2019-03-26] MEDS ORDERED: diphenhydrAMINE 50 mg/ml inj IV ONE (00:30)
[2019-03-26] MEDS ORDERED: proCHLORperazine 10 MG/2 ml inj IV ONE (00:30)
== END 2019-03-26 01:55 | disposition home or self-care (01) ==
LOC: ER 23:53
DX: G43.909 Migraine, unspecified, not intractable, without status migrainosus (principal); R11.2 Nausea with vomiting, unspecified; R10.84 Generalized abdominal pain; J45.909 Unspecified asthma, uncomplicated; E11.9 Type 2 diabetes mellitus without complications; M19.90 Unspecified osteoarthritis, unspecified site; G89.29 Other chronic pain; F41.9 Anxiety disorder, unspecified; F32.9 Major depressive disorder, single episode, unspecified; F20.9 Schizophrenia, unspecified; K21.9 Gastro-esophageal reflux disease without esophagitis; Z87.442 Personal history of urinary calculi; Z86.711 Personal history of pulmonary embolism; Z86.718 Personal history of other venous thrombosis and embolism; Z86.73 Personal history of transient ischemic attack (TIA), and cerebral infarction without residual deficits; Z90.49 Acquired absence of other specified parts of digestive tract; Z90.710 Acquired absence of both cervix and uterus; Z98.51 Tubal ligation status; Z56.0 Unemployment, unspecified; Z88.0 Allergy status to penicillin; Z88.2 Allergy status to sulfonamides; Z88.1 Allergy status to other antibiotic agents; Z88.8 Allergy status to other drugs, medicaments and biological substances; Z91.040 Latex allergy status; Z91.018 Allergy to other foods; Z79.01 Long term (current) use of anticoagulants; Z79.899 Other long term (current) drug therapy
CPT/HCPCS: 96374; 96375; 99283; J0780; J1100; J1200; J1885

== ENCOUNTER 2019-04-01 00:45 | Emergency (ER) | payer MEDICAID ==
[~2019-04-01] VITALS: Ht 157.5 cm; Wt 124.1 kg
[2019-04-01 01:21] VITALS: BP 125/90
[2019-04-01] MEDS ORDERED: ondansetron 4mg rapidly disintigrating tab PO ONE (01:50)
[2019-04-01] MEDS ORDERED: ketorolac trometh inj. 60 MG/2 ML VIAL IM ONE (01:50)
== END 2019-04-01 02:08 | disposition home or self-care (01) ==
LOC: ER 00:45
DX: R10.32 Left lower quadrant pain (principal); G89.29 Other chronic pain; F17.200 Nicotine dependence, unspecified, uncomplicated; J45.909 Unspecified asthma, uncomplicated; E11.9 Type 2 diabetes mellitus without complications; M19.90 Unspecified osteoarthritis, unspecified site; F41.9 Anxiety disorder, unspecified; F32.9 Major depressive disorder, single episode, unspecified; F20.9 Schizophrenia, unspecified; Z86.73 Personal history of transient ischemic attack (TIA), and cerebral infarction without residual deficits; Z86.711 Personal history of pulmonary embolism; Z86.718 Personal history of other venous thrombosis and embolism; Z90.49 Acquired absence of other specified parts of digestive tract; Z90.710 Acquired absence of both cervix and uterus; Z98.51 Tubal ligation status; Z56.0 Unemployment, unspecified; Z88.0 Allergy status to penicillin; Z88.2 Allergy status to sulfonamides; Z91.040 Latex allergy status; Z88.8 Allergy status to other drugs, medicaments and biological substances; Z91.018 Allergy to other foods; Z88.1 Allergy status to other antibiotic agents; Z79.2 Long term (current) use of antibiotics; Z79.899 Other long term (current) drug therapy; Z79.01 Long term (current) use of anticoagulants
CPT/HCPCS: 96372; 99283; J1885; J2405

== ENCOUNTER 2019-07-29 23:22 | Emergency (ER) | payer MEDICAID ==
[~2019-07-29] VITALS: Ht 152.4 cm; Wt 129.1 kg
[2019-07-30 02:41] VITALS: BP 132/71
== END 2019-07-30 02:42 | disposition home or self-care (01) ==
LOC: ER 23:22
DX: R07.89 Other chest pain (principal); G43.909 Migraine, unspecified, not intractable, without status migrainosus; J45.909 Unspecified asthma, uncomplicated; E11.9 Type 2 diabetes mellitus without complications; M19.90 Unspecified osteoarthritis, unspecified site; G89.29 Other chronic pain; Z90.49 Acquired absence of other specified parts of digestive tract; Z90.710 Acquired absence of both cervix and uterus; Z98.51 Tubal ligation status; Z56.0 Unemployment, unspecified; Z86.73 Personal history of transient ischemic attack (TIA), and cerebral infarction without residual deficits; Z86.711 Personal history of pulmonary embolism; Z86.718 Personal history of other venous thrombosis and embolism; Z79.01 Long term (current) use of anticoagulants; Z79.899 Other long term (current) drug therapy; Z88.0 Allergy status to penicillin; Z88.1 Allergy status to other antibiotic agents; Z91.040 Latex allergy status
CPT/HCPCS: 71045; 93005; 99283

== ENCOUNTER 2019-08-23 13:44 | Emergency (ER) | payer MEDICAID ==
[~2019-08-23] VITALS: Ht 152.4 cm; Wt 127.0 kg
[2019-08-23] MEDS ORDERED: ondansetron 4mg rapidly disintigrating tab PO ONE (15:45)
[2019-08-23] MEDS ORDERED: CLIN-90 PO (15:54)
[2019-08-23] MEDS ORDERED: ONDA8TAB6 PO (15:55)
[2019-08-23] MEDS ORDERED: LACT1CAP65 PO (15:56)
[2019-08-23] MEDS ORDERED: EPIN0.3P3 IM (15:58)
[2019-08-23 16:19] VITALS: BP 144/78
== END 2019-08-23 16:20 | disposition home or self-care (01) ==
LOC: ER 13:47
DX: L02.415 Cutaneous abscess of right lower limb (principal); G43.909 Migraine, unspecified, not intractable, without status migrainosus; J45.909 Unspecified asthma, uncomplicated; E11.9 Type 2 diabetes mellitus without complications; M19.90 Unspecified osteoarthritis, unspecified site; G89.29 Other chronic pain; F41.9 Anxiety disorder, unspecified; F32.9 Major depressive disorder, single episode, unspecified; F20.9 Schizophrenia, unspecified; Z86.73 Personal history of transient ischemic attack (TIA), and cerebral infarction without residual deficits; Z86.718 Personal history of other venous thrombosis and embolism; Z86.711 Personal history of pulmonary embolism; Z56.0 Unemployment, unspecified; Z90.49 Acquired absence of other specified parts of digestive tract; Z90.710 Acquired absence of both cervix and uterus; Z98.51 Tubal ligation status; Z88.1 Allergy status to other antibiotic agents; Z88.0 Allergy status to penicillin; Z88.2 Allergy status to sulfonamides; Z91.018 Allergy to other foods; Z91.040 Latex allergy status; Z79.01 Long term (current) use of anticoagulants; Z79.899 Other long term (current) drug therapy
CPT/HCPCS: 99283

== ENCOUNTER 2019-09-03 21:18 | Inpatient (IN) | payer MEDICAID ==
[~2019-09-03] VITALS: Ht 152.4 cm; Wt 120.0 kg
[~2019-09-03 21:18] MED LIST changes: +CLIN-90 PO; +EPIN0.3P3 IM; +LACT1CAP65 PO; +ONDA8TAB6 PO
[2019-09-03 21:46] LABS: PARTIAL THROMBOPLASTIN TIME 37 SECONDS (22-32)
[2019-09-03 22:15] LABS: BASOPHILS # (AUTO) 0.1 X10'3 (0-0.2); BASOPHILS % (AUTO) 1.1 % (0-1); EOSINOPHILS # (AUTO) 0.2 X10'3 (0-0.9); EOSINOPHILS % (AUTO) 2.5 % (0-6); HEMATOCRIT 37.5 % (35.0-45.0); HEMOGLOBIN 12.4 g/dl (12.0-16.0); LYMPHOCYTES # (AUTO) 2.6 X10'3 (1.1-4.8); LYMPHOCYTES % (AUTO) 29.2 % (21-51); MEAN CORPUSCULAR HEMOGLOBIN 28.9 PG (27.0-31.0); MEAN CORPUSCULAR HGB CONC 33.2 g/dL (33.0-36.5); MEAN CORPUSCULAR VOLUME 86.9 FL (78-98); MEAN PLATELET VOLUME 8.2 FL (7.4-10.4); MONOCYTES # (AUTO) 0.7 X10'3 (0-0.9); MONOCYTES % (AUTO) 7.4 % (2-12); NEUTROPHILS # (AUTO) 5.4 X10'3 (1.8-7.7); NEUTROPHILS % (AUTO) 59.8 % (42-75); PLATELET COUNT 259 X10'3 (140-440); RED BLOOD COUNT 4.31 X10'6 (4.20-5.60); RED CELL DISTRIBUTION WIDTH 14.9 % (11.5-14.5)
[2019-09-03] MEDS ORDERED: nitroGLYCERIN 0.4mg SUBLingual tab SL PRN (22:20)
[2019-09-03 22:22] LABS: ALANINE AMINOTRANSFERASE 29 U/L (12-78); ALBUMIN 3.6 G/DL (3.4-5.0); ALBUMIN/GLOBULIN RATIO 0.9 (1.1-1.5); ALKALINE PHOSPHATASE 98 IU/L (46-116); ANION GAP 6 (8-16); ASPARTATE AMINO TRANSFERASE 30 U/L (10-37); BILIRUBIN,TOTAL 0.2 MG/DL (0.1-1.0); BLOOD UREA NITROGEN 13 MG/DL (7-18); BUN/CREATININE RATIO 15.7 (6.6-38.0); CALCIUM 8.8 MG/DL (8.5-10.1); CHLORIDE 107 MMOL/L (99-107); CREATININE 0.83 MG/DL (0.40-0.90); GLUCOSE 84 MG/DL (70-104); POTASSIUM 4.3 MMOL/L (3.5-5.1); SODIUM 142 MMOL/L (135-145); TOTAL CARBON DIOXIDE 29.2 MMOL/L (24-32); TOTAL PROTEIN 7.6 G/DL (6.4-8.2); eGFR 76 ML/MIN
[2019-09-03 22:24] LABS: TROPONIN I < 0.04 NG/ML (0.0-0.05)
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
--- NOTE | 2019-09-03 23:03 | NUR ---
Pt. continues to C/O of tingling along Left side. Er informed.
[2019-09-03] MEDS ORDERED: acetaminophen 325mg tablet PO PRN (23:50)
[2019-09-03] MEDS ORDERED: magnesium hydroxide 30ml (MOM) UD suspension PO PRN (23:50)
[2019-09-03] MEDS ORDERED: mag hydrox/Alum hydrox/simeth 30ml oral suspension PO PRN (23:50)
[2019-09-03] MEDS ORDERED: ondansetron/PF 4mg/2ml inj IV PRN (23:50)
[2019-09-03] MEDS ORDERED: potassium Cl 20 mEq SR tablet PO PRN ×2 (23:50)
[2019-09-03] MEDS ORDERED: magnesium Cl slow-release 64mg tablet PO PRN (23:50)
[2019-09-04] MEDS ORDERED: LEVE750T6 PO (00:27)
[2019-09-04] MEDS ORDERED: GABA-532 PO (00:27)
[2019-09-04] MEDS ORDERED: PANT40TA4 PO (00:27)
[2019-09-04] MEDS ORDERED: PROP10TA10 PO (00:27)
[2019-09-04] MEDS ORDERED: BACL20TA PO (00:27)
[2019-09-04] MEDS ORDERED: albuterol 2.5 MG/3 ML nebule NEB PRN (00:45)
[2019-09-04 02:00] VITALS: BP 115/66
[2019-09-04] MEDS ORDERED: HYDROcodone/acetaminophen 5mg/325mg tablet PO PRN (03:15)
[2019-09-04 05:58] LABS: BASOPHILS # (AUTO) 0.1 X10'3 (0-0.2); BASOPHILS % (AUTO) 1.3 % (0-1); EOSINOPHILS # (AUTO) 0.2 X10'3 (0-0.9); EOSINOPHILS % (AUTO) 3.2 % (0-6); HEMATOCRIT 32.7 % (35.0-45.0); LYMPHOCYTES # (AUTO) 2.5 X10'3 (1.1-4.8); LYMPHOCYTES % (AUTO) 36.5 % (21-51); MEAN CORPUSCULAR HEMOGLOBIN 29.4 PG (27.0-31.0); MEAN CORPUSCULAR HGB CONC 33.7 g/dL (33.0-36.5); MEAN CORPUSCULAR VOLUME 87.2 FL (78-98); MONOCYTES # (AUTO) 0.5 X10'3 (0-0.9); MONOCYTES % (AUTO) 6.8 % (2-12); NEUTROPHILS # (AUTO) 3.5 X10'3 (1.8-7.7); NEUTROPHILS % (AUTO) 52.2 % (42-75); PLATELET COUNT 227 X10'3 (140-440); RED BLOOD COUNT 3.75 X10'6 (4.20-5.60); RED CELL DISTRIBUTION WIDTH 14.9 % (11.5-14.5); WHITE BLOOD COUNT 6.8 X10'3 (4.5-11.0)
[2019-09-04 06:00] VITALS: BP 88/42
[2019-09-04 06:22] LABS: ALANINE AMINOTRANSFERASE 24 U/L (12-78); ALBUMIN/GLOBULIN RATIO 0.9 (1.1-1.5); ALKALINE PHOSPHATASE 82 IU/L (46-116); ANION GAP 6 (8-16); ASPARTATE AMINO TRANSFERASE 23 U/L (10-37); BILIRUBIN,TOTAL 0.3 MG/DL (0.1-1.0); BLOOD UREA NITROGEN 12 MG/DL (7-18); BUN/CREATININE RATIO 16.7 (6.6-38.0); CALCIUM 8.1 MG/DL (8.5-10.1); CHLORIDE 110 MMOL/L (99-107); CHOL/HDL RATIO 1.9 (0.00-4.99); CHOLESTEROL 151 MG/DL (0-200); CREATININE 0.72 MG/DL (0.40-0.90); GLUCOSE 87 MG/DL (70-104); HDL CHOLESTEROL 79 MG/DL (35-60); LDL CHOLESTEROL 60 MG/DL (50-100); MAGNESIUM 1.8 MG/DL (1.5-2.4); POTASSIUM 3.7 MMOL/L (3.5-5.1); SODIUM 144 MMOL/L (135-145); TOTAL CARBON DIOXIDE 27.6 MMOL/L (24-32); TOTAL PROTEIN 6.3 G/DL (6.4-8.2); TRIGLYCERIDES 80 MG/DL (20-135); eGFR 89 ML/MIN
--- NOTE | 2019-09-04 06:30 | NUR ---
Patient in room [facility] 4015. I have received report from SAARH Norris and had the opportunity to ask questions and assume patient care.
[2019-09-04] MEDS: gabapentin 300mg capsule PO SCH ×2 (07:53→13:37)
[2019-09-04] MEDS ORDERED: sertraline 50mg tablet PO SCH (08:00)
[2019-09-04] MEDS ORDERED: baclofen 10mg tablet PO SCH (08:00)
[2019-09-04] MEDS ORDERED: K and/or MAG REPLACEMENT MC SCH (08:00)
[2019-09-04] MEDS ORDERED: budesonide 0.5mg/2ml UD nebule IH SCH (08:00)
[2019-09-04] MEDS ORDERED: levetiracetam 250mg tablet PO SCH (08:00)
[2019-09-04] MEDS ORDERED: rivaroxaban 10mg tablet PO SCH (08:00)
[2019-09-04] MEDS ORDERED: pantoprazole 40mg Tablet.DR PO SCH (08:00)
[2019-09-04] MEDS: albuterol 2.5 MG/3 ML nebule NEB SCH ×2 (08:02→15:16)
[2019-09-04 10:00] VITALS: BP 98/55
[2019-09-04] MEDS ORDERED: LORazepam 2 mg/ml vial IV ONE (11:05)
[2019-09-04] MEDS ORDERED: ASPI81TA52 PO (16:23)
--- NOTE | 2019-09-04 17:15 | NUR ---
Received discharge orders for pt from Dr. Shell. Saline lock x2 dc'd from left and right hand. Telemetry dc'd and returned to Tele Box. Reviewed discharge instructions per Dr. Shell. Transported via w/c to private vehicle.
== END 2019-09-04 17:10 | disposition home or self-care (01) | DRG 47 ==
LOC: ER 21:19 → ED HOLD 23:54 → ORTHO 4S 09-04 01:50
PROVIDERS: ADMIT Internal Medicine; ATTEND Hospitalist
DX: G45.9 Transient cerebral ischemic attack, unspecified (principal); D68.9 Coagulation defect, unspecified; E66.01 Morbid (severe) obesity due to excess calories; F20.9 Schizophrenia, unspecified; Z68.43 Body mass index [BMI] 50.0-59.9, adult; E11.9 Type 2 diabetes mellitus without complications; F17.200 Nicotine dependence, unspecified, uncomplicated; G89.29 Other chronic pain; J45.909 Unspecified asthma, uncomplicated; G40.909 Epilepsy, unspecified, not intractable, without status epilepticus; Z88.0 Allergy status to penicillin; Z88.1 Allergy status to other antibiotic agents; Z88.2 Allergy status to sulfonamides; Z88.8 Allergy status to other drugs, medicaments and biological substances; Z86.711 Personal history of pulmonary embolism; Z90.710 Acquired absence of both cervix and uterus
CPT/HCPCS: 36415; 70450; 71045; 80053; 80061; 83036; 83735; 84484; 85025; 85610; 85730; 87081; 93306; 93880; 94640; 94760; 97116; 97162; 97530; G0378; J7626

== ENCOUNTER 2020-01-02 21:08 | Emergency (ER) | payer MEDICAID ==
[~2020-01-02] VITALS: Ht 154.9 cm; Wt 113.6 kg
[~2020-01-02 21:08] MED LIST changes: +ASPI81TA52 PO; +BACL20TA PO; -CLIN-90 PO; +CLIN-97 PO; -CLON-527 PO; -COU1T PO; -COU3T PO; -CYCL-1 PO; -GABA-530 PO; +GABA-532 PO; -KETO10TA2 PO; -LACT1CAP73 PO; +LEVE750T6 PO; -NITR100C6 PO; -ONDA4TAB12 PO; -ONDA8TAB6 PO; +PANT40TA4 PO; -PHEN-716 PO; -PROM12.512 PO; +PROP10TA10 PO
[2020-01-02] MEDS ORDERED: normal saline 1000ML IV soln IVB ONE (21:15)
[2020-01-02] MEDS ORDERED: ondansetron/PF 4mg/2ml inj IV ONE (21:15)
[2020-01-02 21:36] LABS: BASOPHILS # (AUTO) 0.1 X10'3 (0-0.2); EOSINOPHILS # (AUTO) 0.3 X10'3 (0-0.9); EOSINOPHILS % (AUTO) 3.2 % (0-6); HEMATOCRIT 38.8 % (35.0-45.0); HEMOGLOBIN 12.6 g/dl (12.0-16.0); LYMPHOCYTES # (AUTO) 1.9 X10'3 (1.1-4.8); LYMPHOCYTES % (AUTO) 21.3 % (21-51); MEAN CORPUSCULAR HEMOGLOBIN 28.8 PG (27.0-31.0); MEAN CORPUSCULAR HGB CONC 32.4 g/dL (33.0-36.5); MEAN CORPUSCULAR VOLUME 88.8 FL (78-98); MEAN PLATELET VOLUME 8.3 FL (7.4-10.4); MONOCYTES # (AUTO) 0.6 X10'3 (0-0.9); MONOCYTES % (AUTO) 7.1 % (2-12); NEUTROPHILS # (AUTO) 6.1 X10'3 (1.8-7.7); NEUTROPHILS % (AUTO) 67.4 % (42-75); PLATELET COUNT 259 X10'3 (140-440); RED BLOOD COUNT 4.37 X10'6 (4.20-5.60); WHITE BLOOD COUNT 9.1 X10'3 (4.5-11.0)
[2020-01-02 21:50] LABS: ALANINE AMINOTRANSFERASE 18 U/L (12-78); ALBUMIN 3.8 G/DL (3.4-5.0); ALKALINE PHOSPHATASE 99 IU/L (46-116); ANION GAP 11 (8-16); ASPARTATE AMINO TRANSFERASE 25 U/L (10-37); BILIRUBIN,TOTAL 0.4 MG/DL (0.1-1.0); BLOOD UREA NITROGEN 11 MG/DL (7-18); BUN/CREATININE RATIO 13.4 (6.6-38.0); CALCIUM 9.4 MG/DL (8.5-10.1); CHLORIDE 104 MMOL/L (99-107); CREATININE 0.82 MG/DL (0.40-0.90); GLUCOSE 89 MG/DL (70-104); LIPASE 92 U/L (73-393); POTASSIUM 3.7 MMOL/L (3.5-5.1); SODIUM 141 MMOL/L (135-145); TOTAL CARBON DIOXIDE 25.8 MMOL/L (24-32); TOTAL PROTEIN 7.8 G/DL (6.4-8.2); eGFR 77 ML/MIN
[2020-01-02] MEDS: morphine 4 MG/ML inj SYRINge IV PRN ×2 (21:58→22:59)
[2020-01-02 23:47] LABS: CLARITY,URINE SLIGHTLY CLOUDY (Clear); COLOR,URINE STRAW (Yellow); GLUCOSE, URINE NEGATIVE (Neg); KETONES,URINE NEGATIVE (Neg); LEUKOCYTE ESTERASE ,URINE SMALL (Neg); NITRITES, URINE NEGATIVE (Neg); OCCULT BLOOD,URINE MODERATE (Neg); PH,URINE 5.5 (4.8-8.0); PROTEIN,URINE NEGATIVE (Neg); UROBILINOGEN,URINE 0.2 E.U/dL (0.2-1.0)
[2020-01-02 23:48] LABS: URINE HCG NEGATIVE (NEG)
[2020-01-03 00:03] LABS: UA COLLECTION TYPE NON-SPECIFIED
[2020-01-03 00:05] LABS: RBC,URINE NONE SEEN /HPF (0-2)
[2020-01-03 00:06] LABS: BACTERIA,URINE FEW /HPF (Neg); SQUAMOUS EPITHELIAL CELL,UR MODERATE /LPF (FEW)
--- NOTE | 2020-01-03 00:12 | NUR ---
informed by lab that pt ua contained trichomoniasis. edmd gale aware. will continue to monitor
[2020-01-03] MEDS ORDERED: ONDA4TAB6 PO (00:15)
[2020-01-03] MEDS ORDERED: metroNIDAZOLE 500mg tablet PO ONE (00:15)
[2020-01-03] MEDS ORDERED: METR-159 PO (00:15)
[2020-01-03 00:53] VITALS: BP 116/69
== END 2020-01-03 00:50 | disposition home or self-care (01) ==
LOC: ER 21:09
DX: A59.9 Trichomoniasis, unspecified (principal); R10.11 Right upper quadrant pain; R11.2 Nausea with vomiting, unspecified; G43.909 Migraine, unspecified, not intractable, without status migrainosus; M19.90 Unspecified osteoarthritis, unspecified site; J45.909 Unspecified asthma, uncomplicated; E11.9 Type 2 diabetes mellitus without complications; G89.29 Other chronic pain; F41.9 Anxiety disorder, unspecified; F32.9 Major depressive disorder, single episode, unspecified; F20.9 Schizophrenia, unspecified; F17.200 Nicotine dependence, unspecified, uncomplicated; F12.90 Cannabis use, unspecified, uncomplicated; Z90.49 Acquired absence of other specified parts of digestive tract; Z90.710 Acquired absence of both cervix and uterus; Z98.51 Tubal ligation status; Z56.0 Unemployment, unspecified; Z86.718 Personal history of other venous thrombosis and embolism; Z88.0 Allergy status to penicillin; Z86.73 Personal history of transient ischemic attack (TIA), and cerebral infarction without residual deficits; Z86.711 Personal history of pulmonary embolism; Z88.2 Allergy status to sulfonamides; Z91.040 Latex allergy status; Z88.8 Allergy status to other drugs, medicaments and biological substances; Z79.82 Long term (current) use of aspirin; Z79.01 Long term (current) use of anticoagulants; Z79.899 Other long term (current) drug therapy
CPT/HCPCS: 36415; 80053; 81001; 81025; 83690; 85025; 87088; 96361; 96374; 96375; 96376; 99284; J2270; J2405; J7030; 81003

== ENCOUNTER 2020-01-21 22:03 | Emergency (ER) | payer MEDICAID ==
[~2020-01-21] VITALS: Ht 152.4 cm; Wt 127.5 kg
--- NOTE | 2020-01-21 22:30 | NUR ---
Patient sitting on gurney in no obvious distress, reports left lateral rib pain 8/10
[2020-01-21] MEDS ORDERED: HYDROcodone/acetaminophen 10/325mg tab PO ONE (22:45)
[2020-01-21] MEDS ORDERED: ondansetron 4mg rapidly disintigrating tab PO ONE (22:45)
[2020-01-21] MEDS ORDERED: ibuprofen tablet 400 MG TABLET PO ONE (22:45)
[2020-01-21] MEDS ORDERED: pantoprazole 40mg Tablet.DR PO ONE (22:55)
[2020-01-21] MEDS ORDERED: OXYC-145 PO (22:56)
[2020-01-21] MEDS ORDERED: PANT-47 PO (22:56)
[2020-01-21] MEDS ORDERED: ONDA8TAB13 PO (22:56)
[2020-01-21] MEDS ORDERED: ACET-3068 PO (23:04)
[2020-01-21 23:36] VITALS: BP 145/78
[2020-01-22] MEDS ORDERED: pantoprazole 40mg Tablet.DR PO SCH (07:30)
== END 2020-01-21 23:40 | disposition home or self-care (01) ==
LOC: ER 22:03
DX: R07.89 Other chest pain (principal); G43.909 Migraine, unspecified, not intractable, without status migrainosus; J45.909 Unspecified asthma, uncomplicated; E11.9 Type 2 diabetes mellitus without complications; M19.90 Unspecified osteoarthritis, unspecified site; G89.29 Other chronic pain; F41.9 Anxiety disorder, unspecified; F32.9 Major depressive disorder, single episode, unspecified; F20.9 Schizophrenia, unspecified; F17.200 Nicotine dependence, unspecified, uncomplicated; F12.90 Cannabis use, unspecified, uncomplicated; Z86.718 Personal history of other venous thrombosis and embolism; Z86.73 Personal history of transient ischemic attack (TIA), and cerebral infarction without residual deficits; Z90.49 Acquired absence of other specified parts of digestive tract; Z90.710 Acquired absence of both cervix and uterus; Z98.51 Tubal ligation status; Z56.0 Unemployment, unspecified; Z88.0 Allergy status to penicillin; Z88.2 Allergy status to sulfonamides; Z91.040 Latex allergy status; Z88.8 Allergy status to other drugs, medicaments and biological substances; Z79.82 Long term (current) use of aspirin; Z79.01 Long term (current) use of anticoagulants; Z79.899 Other long term (current) drug therapy
CPT/HCPCS: 71045; 99284

== ENCOUNTER 2020-03-06 22:50 | Emergency (ER) | payer MEDICAID ==
[~2020-03-06] VITALS: Ht 152.4 cm; Wt 115.9 kg
[~2020-03-06 22:50] MED LIST changes: +ONDA8TAB13 PO; +PANT-47 PO
[2020-03-06] MEDS ORDERED: acetaminophen 325mg tablet PO ONE (23:15)
[2020-03-06] MEDS ORDERED: ketorolac trometh inj. 60 MG/2 ML VIAL IM ONE (23:15)
[2020-03-06] MEDS ORDERED: ondansetron 4mg rapidly disintigrating tab PO ONE (23:15)
[2020-03-06] MEDS ORDERED: HYDROcodone/acetaminophen 5mg/325mg tablet PO ONE (23:15)
[2020-03-06] MEDS ORDERED: ONDA8TAB6 PO (23:18)
[2020-03-06] MEDS ORDERED: HYDR-3965 PO (23:18)
[2020-03-06 23:40] VITALS: BP 98/100
== END 2020-03-06 23:37 | disposition home or self-care (01) ==
LOC: ER 22:50
DX: R20.2 Paresthesia of skin (principal); R22.0 Localized swelling, mass and lump, head; G43.909 Migraine, unspecified, not intractable, without status migrainosus; J45.909 Unspecified asthma, uncomplicated; E11.9 Type 2 diabetes mellitus without complications; M19.90 Unspecified osteoarthritis, unspecified site; G89.29 Other chronic pain; F41.9 Anxiety disorder, unspecified; F32.9 Major depressive disorder, single episode, unspecified; F20.9 Schizophrenia, unspecified; F12.90 Cannabis use, unspecified, uncomplicated; Z86.73 Personal history of transient ischemic attack (TIA), and cerebral infarction without residual deficits; Z87.01 Personal history of pneumonia (recurrent); Z86.711 Personal history of pulmonary embolism; Z87.442 Personal history of urinary calculi; Z86.718 Personal history of other venous thrombosis and embolism; Z90.49 Acquired absence of other specified parts of digestive tract; Z90.710 Acquired absence of both cervix and uterus; Z98.51 Tubal ligation status; Z56.0 Unemployment, unspecified; Z88.1 Allergy status to other antibiotic agents; Z88.2 Allergy status to sulfonamides; Z88.0 Allergy status to penicillin; Z88.8 Allergy status to other drugs, medicaments and biological substances; Z91.040 Latex allergy status; Z91.018 Allergy to other foods; Z79.82 Long term (current) use of aspirin; Z79.2 Long term (current) use of antibiotics; Z79.899 Other long term (current) drug therapy
CPT/HCPCS: 96372; 99284; J1885

== ENCOUNTER 2020-04-12 18:44 | Emergency (ER) | payer MEDICAID ==
[~2020-04-12] VITALS: Ht 152.4 cm; Wt 122.7 kg
[~2020-04-12 18:44] MED LIST changes: +ONDA8TAB6 PO
[2020-04-12] MEDS ORDERED: TRAM50TA2 PO (20:26)
[2020-04-12] MEDS ORDERED: AZIT-72 PO (20:26)
[2020-04-12] MEDS ORDERED: ONDA4TAB6 PO (20:26)
[2020-04-12 20:45] VITALS: BP 134/69
== END 2020-04-12 20:47 | disposition home or self-care (01) ==
LOC: ER 18:45
DX: H66.91 Otitis media, unspecified, right ear (principal); H92.02 Otalgia, left ear; G43.909 Migraine, unspecified, not intractable, without status migrainosus; J45.909 Unspecified asthma, uncomplicated; E11.9 Type 2 diabetes mellitus without complications; M19.90 Unspecified osteoarthritis, unspecified site; G89.29 Other chronic pain; F41.9 Anxiety disorder, unspecified; F32.9 Major depressive disorder, single episode, unspecified; F20.9 Schizophrenia, unspecified; F12.90 Cannabis use, unspecified, uncomplicated; Z86.73 Personal history of transient ischemic attack (TIA), and cerebral infarction without residual deficits; Z87.01 Personal history of pneumonia (recurrent); Z86.711 Personal history of pulmonary embolism; Z87.442 Personal history of urinary calculi; Z86.718 Personal history of other venous thrombosis and embolism; Z90.49 Acquired absence of other specified parts of digestive tract; Z90.710 Acquired absence of both cervix and uterus; Z98.51 Tubal ligation status; Z56.0 Unemployment, unspecified; Z88.1 Allergy status to other antibiotic agents; Z88.0 Allergy status to penicillin; Z88.2 Allergy status to sulfonamides; Z91.040 Latex allergy status; Z88.8 Allergy status to other drugs, medicaments and biological substances; Z79.82 Long term (current) use of aspirin; Z79.2 Long term (current) use of antibiotics; Z79.899 Other long term (current) drug therapy
CPT/HCPCS: 99283

== ENCOUNTER 2020-05-05 22:19 | Emergency (ER) | payer MEDICAID ==
[~2020-05-05] VITALS: Ht 152.4 cm; Wt 123.0 kg
[~2020-05-05 22:19] MED LIST changes: -PANT40TA4 PO; +PANT40TA54 PO
[2020-05-05] MEDS ORDERED: HYDROcodone/acetaminophen 10/325mg tab PO ONE (23:40)
[2020-05-05 23:55] VITALS: BP 118/66
== END 2020-05-05 23:56 | disposition home or self-care (01) ==
LOC: ER 22:19
DX: R07.89 Other chest pain (principal); G43.909 Migraine, unspecified, not intractable, without status migrainosus; J44.9 Chronic obstructive pulmonary disease, unspecified; E11.9 Type 2 diabetes mellitus without complications; M19.90 Unspecified osteoarthritis, unspecified site; G89.29 Other chronic pain; F41.9 Anxiety disorder, unspecified; F32.9 Major depressive disorder, single episode, unspecified; F20.9 Schizophrenia, unspecified; F17.200 Nicotine dependence, unspecified, uncomplicated; F12.90 Cannabis use, unspecified, uncomplicated; Z86.73 Personal history of transient ischemic attack (TIA), and cerebral infarction without residual deficits; Z86.718 Personal history of other venous thrombosis and embolism; Z86.711 Personal history of pulmonary embolism; Z90.49 Acquired absence of other specified parts of digestive tract; Z90.710 Acquired absence of both cervix and uterus; Z98.51 Tubal ligation status; Z56.0 Unemployment, unspecified; Z88.8 Allergy status to other drugs, medicaments and biological substances; Z88.0 Allergy status to penicillin; Z88.2 Allergy status to sulfonamides; Z79.01 Long term (current) use of anticoagulants; Z79.82 Long term (current) use of aspirin; Z79.899 Other long term (current) drug therapy
CPT/HCPCS: 93005; 99283

== ENCOUNTER 2020-06-11 19:04 | Emergency (ER) | payer MEDICAID ==
[~2020-06-11] VITALS: Ht 152.4 cm; Wt 125.9 kg
[2020-06-11 19:22] VITALS: BP 128/67
[2020-06-11] MEDS ORDERED: HYDROcodone/acetaminophen 5mg/325mg tablet PO ONE (20:45)
== END 2020-06-11 21:06 | disposition home or self-care (01) ==
LOC: ER 19:05
DX: S93.492A Sprain of other ligament of left ankle, initial encounter (principal); M79.672 Pain in left foot; G43.909 Migraine, unspecified, not intractable, without status migrainosus; J44.9 Chronic obstructive pulmonary disease, unspecified; E11.9 Type 2 diabetes mellitus without complications; M19.90 Unspecified osteoarthritis, unspecified site; G89.29 Other chronic pain; F41.9 Anxiety disorder, unspecified; F32.9 Major depressive disorder, single episode, unspecified; F20.9 Schizophrenia, unspecified; F12.90 Cannabis use, unspecified, uncomplicated; Z87.01 Personal history of pneumonia (recurrent); Z86.73 Personal history of transient ischemic attack (TIA), and cerebral infarction without residual deficits; Z86.711 Personal history of pulmonary embolism; Z87.442 Personal history of urinary calculi; Z86.718 Personal history of other venous thrombosis and embolism; Z90.49 Acquired absence of other specified parts of digestive tract; Z90.710 Acquired absence of both cervix and uterus; Z98.51 Tubal ligation status; Z56.0 Unemployment, unspecified; Z88.1 Allergy status to other antibiotic agents; Z88.0 Allergy status to penicillin; Z91.040 Latex allergy status; Z91.018 Allergy to other foods; Z88.8 Allergy status to other drugs, medicaments and biological substances; Z79.82 Long term (current) use of aspirin; Z79.899 Other long term (current) drug therapy; W18.49XA Other slipping, tripping and stumbling without falling, initial encounter; Y93.89 Activity, other specified; Y92.89 Other specified places as the place of occurrence of the external cause; Y99.8 Other external cause status
CPT/HCPCS: 73590; 73630; 99284